=== PATIENT | female | born 1955 | race Caucasian/White ===

== ENCOUNTER 2022-05-07 15:52 | Emergency (ER) | payer MEDICARE, BC ==
[~2022-05-07] VITALS: Ht 162.5 cm; Wt 73.9 kg
== END 2022-05-07 17:02 | disposition home or self-care (01) ==
LOC: ED 15:52
DX: R51.9 Headache, unspecified (principal); H92.02 Otalgia, left ear; Z77.098 Contact with and (suspected) exposure to other hazardous, chiefly nonmedicinal, chemicals

== ENCOUNTER 2024-09-03 08:04 | Emergency (ER) | payer MEDICARE, BC ==
[~2024-09-03] VITALS: Ht 165.1 cm; Wt 79.4 kg
[2024-09-03] MEDS ORDERED: NEXIUM40 MG PO (08:13)
[2024-09-03] MEDS ORDERED: SIMVASTATIN10 MG PO (08:14)
[2024-09-03] MEDS ORDERED: MAGNESIUM CITRATE 296 ML BOT PO ONE (08:25)
[2024-09-03] MEDS ORDERED: SODIUM POLYSTYRENE SULFONATE 15 GM/60 ML BOT PO ONE (08:25)
[2024-09-03] MEDS ORDERED: COLACE 2-IN-11 EACH PO (09:10)
== END 2024-09-03 09:11 | disposition home or self-care (01) ==
LOC: ED 08:04
DX: K59.00 Constipation, unspecified (principal); R11.2 Nausea with vomiting, unspecified; R19.7 Diarrhea, unspecified; Z79.899 Other long term (current) drug therapy

== ENCOUNTER 2024-09-03 16:57 | Emergency (ER) | payer MEDICARE, BC ==
[~2024-09-03] VITALS: Ht 162.5 cm; Wt 79.4 kg
[~2024-09-03 16:57] MED LIST: COLACE 2-IN-11 EACH PO; NEXIUM40 MG PO; SIMVASTATIN10 MG PO
== END 2024-09-03 19:55 | disposition home or self-care (01) ==
LOC: ED 16:57
DX: K59.00 Constipation, unspecified (principal); Z79.899 Other long term (current) drug therapy

== ENCOUNTER 2024-09-05 07:54 | Emergency (ER) | payer MEDICARE, BC ==
[~2024-09-05] VITALS: Ht 162.5 cm; Wt 79.4 kg
[2024-09-05] MEDS ORDERED: Peg Electrolyte Lavage Solut 4,000 ML BOT PO ONE (08:15)
[2024-09-05] MEDS ORDERED: SODIUM CHLORIDE 0.9% 1,000 ML IV ONE (08:15)
[2024-09-05 08:24] LABS: BASO % 0.5 % (0.0-1.0); EOS # 0.1 10*3/uL (0.0-0.4); EOS % 1.7 % (1.0-4.0); HEMATOCRIT 40.3 % (37.0-47.0); MEAN CELL VOLUME 92.4 fl (81.0-99.0); MEAN CORPUSCULAR HGB CONC 32.5 g/dl (33.0-37.0); MEAN PLATELET VOLUME 8.6 fl (9.6-12.3); MONO # 0.5 10*3/uL (0.1-1.0); MONO % 7.3 % (3.0-9.0); NEUT # 4.4 10*3/uL (2.3-7.9); NEUT % 67.1 % (47.0-73.0); PLATELET COUNT AUTOMATED 269 10*3/uL (130-400); RED BLOOD COUNT 4.36 10*6/uL (4.10-5.10); RED CELL DISTRI WIDTH 12.5 % (0-14.5); WHITE BLOOD COUNT 6.6 10*3/uL (4.8-10.8)
[2024-09-05 08:44] LABS: BUN 8 mg/dl (9-23); CHLORIDE 103 mmol/L (98-107); POTASSIUM 4.1 mmol/L (3.4-5.1)
[2024-09-05] MEDS ORDERED: HEEL PROTECTOR DEVICE ONE (12:09)
== END 2024-09-05 12:28 | disposition home or self-care (01) ==
LOC: ED 07:54
PROVIDERS: Emergency Medicine
DX: K59.00 Constipation, unspecified (principal); K21.9 Gastro-esophageal reflux disease without esophagitis

== ENCOUNTER 2024-09-19 07:15 | Emergency (ER) | payer MEDICARE, BC ==
[~2024-09-19] VITALS: Ht 162.5 cm; Wt 77.1 kg
[2024-09-19 08:07] LABS: BASO % 0.4 % (0.0-1.0); EOS % 0.4 % (1.0-4.0); HEMATOCRIT 39.1 % (37.0-47.0); MEAN CELL VOLUME 91.6 fl (81.0-99.0); MEAN CORPUSCULAR HGB CONC 32.7 g/dl (33.0-37.0); MEAN PLATELET VOLUME 8.8 fl (9.6-12.3); MONO # 0.8 10*3/uL (0.1-1.0); MONO % 7.6 % (3.0-9.0); NEUT # 8.5 10*3/uL (2.3-7.9); NEUT % 79.6 % (47.0-73.0); PLATELET COUNT AUTOMATED 235 10*3/uL (130-400); RED BLOOD COUNT 4.27 10*6/uL (4.10-5.10); RED CELL DISTRI WIDTH 12.3 % (0-14.5); WHITE BLOOD COUNT 10.6 10*3/uL (4.8-10.8)
[2024-09-19 08:28] LABS: BUN 10 mg/dl (9-23); CHLORIDE 101 mmol/L (98-107); POTASSIUM 3.9 mmol/L (3.4-5.1)
[2024-09-19] MEDS ORDERED: AVPAK AZITHROM250 MG PO (10:29)
== END 2024-09-19 10:33 | disposition home or self-care (01) ==
LOC: ED 07:15
PROVIDERS: Internal Medicine
DX: J40 Bronchitis, not specified as acute or chronic (principal); Z20.822 Contact with and (suspected) exposure to COVID-19; Z79.899 Other long term (current) drug therapy

== ENCOUNTER 2024-09-22 12:31 | Emergency (ER) | payer MEDICARE, BC ==
[~2024-09-22] VITALS: Ht 162.5 cm; Wt 77.1 kg
[~2024-09-22 12:31] MED LIST changes: +AVPAK AZITHROM250 MG PO
[2024-09-22 13:00] LABS: BASO % 0.3 % (0.0-1.0); EOS # 0.1 10*3/uL (0.0-0.4); EOS % 0.8 % (1.0-4.0); HEMATOCRIT 35.5 % (37.0-47.0); MEAN CELL VOLUME 91.3 fl (81.0-99.0); MEAN CORPUSCULAR HGB 30.6 pg (27.0-31.0); MEAN CORPUSCULAR HGB CONC 33.5 g/dl (33.0-37.0); MEAN PLATELET VOLUME 8.6 fl (9.6-12.3); MONO # 0.8 10*3/uL (0.1-1.0); MONO % 6.8 % (3.0-9.0); NEUT # 9.2 10*3/uL (2.3-7.9); NEUT % 77.9 % (47.0-73.0); PLATELET COUNT AUTOMATED 245 10*3/uL (130-400); RED BLOOD COUNT 3.89 10*6/uL (4.10-5.10); RED CELL DISTRI WIDTH 12.2 % (0-14.5); WHITE BLOOD COUNT 11.8 10*3/uL (4.8-10.8)
[2024-09-22 13:27] LABS: BUN 8 mg/dl (9-23); CHLORIDE 99 mmol/L (98-107); POTASSIUM 4.1 mmol/L (3.4-5.1)
[2024-09-22] MEDS ORDERED: PREDNISONE50 MG PO (14:17)
[2024-09-22] MEDS ORDERED: predniSONE 20 MG TAB PO ONE (14:20)
== END 2024-09-22 14:32 | disposition home or self-care (01) ==
LOC: ED 12:31
PROVIDERS: Nurse Practitioner Family
DX: J98.4 Other disorders of lung (principal); K21.9 Gastro-esophageal reflux disease without esophagitis; Z79.899 Other long term (current) drug therapy

== ENCOUNTER 2025-02-19 10:08 | Emergency (ER) | payer MEDICARE, BC ==
[~2025-02-19] VITALS: Ht 162.5 cm; Wt 81.6 kg
[~2025-02-19 10:08] MED LIST changes: +PREDNISONE50 MG PO
[2025-02-19 11:11] LABS: BASO # 0.0 10*3/uL (0.0-0.1); BASO % 0.5 % (0.0-1.0); EOS # 0.1 10*3/uL (0.0-0.4); EOS % 2.0 % (1.0-4.0); MEAN CELL VOLUME 90.3 fl (81.0-99.0); MEAN CORPUSCULAR HGB 29.7 pg (27.0-31.0); MEAN PLATELET VOLUME 8.6 fl (9.6-12.3); MONO # 0.4 10*3/uL (0.1-1.0); MONO % 6.9 % (3.0-9.0); NEUT # 3.2 10*3/uL (2.3-7.9); NEUT % 58.4 % (47.0-73.0); NUCLEATED RED BLOOD CELL 0.0 % (0.0-0.0); NUCLEATED RED BLOOD CELL 0.0 10*3/uL (0.0-0.0); PLATELET COUNT AUTOMATED 249 10*3/uL (130-400); RED CELL DISTRI WIDTH 12.7 % (0-14.5)
[2025-02-19 11:30] LABS: BUN 15 mg/dl (9-23)
== END 2025-02-19 13:14 | disposition home or self-care (01) ==
LOC: ED 10:08
PROVIDERS: Emergency Medicine
DX: F41.9 Anxiety disorder, unspecified (principal); R03.0 Elevated blood-pressure reading, without diagnosis of hypertension; H53.8 Other visual disturbances; R51.9 Headache, unspecified; Z79.899 Other long term (current) drug therapy

== ENCOUNTER 2025-05-05 07:21 | Emergency (ER) | payer MEDICARE, BC ==
[~2025-05-05] VITALS: Ht 162.5 cm; Wt 77.1 kg
== END 2025-05-05 07:53 | disposition home or self-care (01) ==
LOC: ED 07:21
DX: J06.9 Acute upper respiratory infection, unspecified (principal); K21.9 Gastro-esophageal reflux disease without esophagitis